=== PATIENT | male | born 1960 | race Hispanic/Latino ===

== ENCOUNTER 2020-02-20 22:18 | Inpatient (IN) | payer OTHER ==
[~2020-02-20] VITALS: Ht 182.9 cm; Wt 103.0 kg
[2020-02-20 23:33] LABS: BASOPHILS % (AUTO) 0.3 % (0.0-5.0); EOSINOPHILS % (AUTO) 4.2 % (0.0-8.0); HEMATOCRIT 24.3 % (42-54); LYMPHOCYTES % (AUTO) 11.4 % (21.0-51.0); MEAN CORPUSCULAR HGB CONC 32.5 g/dL (32.0-36.0); MEAN CORPUSCULAR VOLUME 79.9 fL (79-99); MONOCYTES % (AUTO) 8.5 % (3.0-13.0); NEUTROPHILS % (AUTO) 75.1 % (40.0-77.0); PLATELET COUNT (AUTO) 536 K/uL (130-400); RED BLOOD CELL COUNT(AUTO) 3.04 MIL/uL (4.50-6.20); RED CELL DISTRIBUTION WIDTH 15.4 % (11.0-15.5); WHITE BLOOD COUNT (AUTO) 11.6 K/uL (4.8-10.8)
[2020-02-20 23:48] LABS: INR 1.09 (0.85-1.15); PARTIAL THROMBOPLASTIN TIME 38.3 SEC (26.3-35.5); PROTHROMBIN TIME 11.7 SEC (9.6-11.6)
[2020-02-21 00:05] LABS: ALBUMIN 1.7 g/dL (3.5-5.0); B-TYPE NATRIURETIC PEPTIDE 1000 pg/mL (0-100); BILIRUBIN,TOTAL 0.5 mg/dL (0.2-1.0); POTASSIUM 5.4 mmol/L (3.5-5.1); TOTAL PROTEIN, SERUM 7.6 g/dL (6.0-8.3)
[2020-02-21 00:26] LABS: CREATININE 13.1 mg/dL (0.5-1.5)
[2020-02-21] MEDS ORDERED: ONDANSETRON HCL 4 MG/2 ML VIAL IV PRN (01:30)
[2020-02-21] MEDS ORDERED: GLUCAGON 1MG KIT 1 MG ML IM PRN (01:30)
[2020-02-21] MEDS ORDERED: AZITHROMYCIN 500MG+NS 250ML 250 ML IV SCH (01:30)
[2020-02-21] MEDS ORDERED: ALBUTEROL INHALER 90MCG/INH IH PRN (01:30)
[2020-02-21] MEDS ORDERED: GUAIFENESIN-DM 200/20 MG 10 ML PO PRN (01:30)
[2020-02-21] MEDS ORDERED: MORPHINE SULFATE 2 MG/ML 1ML SYG IVP PRN (01:30)
[2020-02-21] MEDS ORDERED: FUROSEMIDE 10 MG/ML 2ML VIAL IV SCH (01:45)
[2020-02-21] MEDS ORDERED: CEFTRIAXONE SODIUM 1 GM ONE ×2 (01:58→15:35)
[2020-02-21] MEDS ORDERED: FUROSEMIDE 10 MG/ML 2ML VIAL ONE (01:58)
[2020-02-21] MEDS ORDERED: AZITHROMYCIN 500MG+NS 250ML 250 ML IV ONE (01:58)
[2020-02-21] MEDS ORDERED: FAMOTIDINE/PF 20 MG/2 ML VIAL IV ONE ×2 (08:35→22:32)
[2020-02-21] MEDS ORDERED: ASPIRIN 81MG TAB.CHEW ONE (08:35)
[2020-02-21] MEDS ORDERED: FAMOTIDINE/PF 20 MG/2 ML VIAL IV SCH (09:00)
[2020-02-21] MEDS ORDERED: SPIRONOLACTONE 25 MG TAB PO SCH (11:15)
[2020-02-21] MEDS ORDERED: FUROSEMIDE 10 MG/ML 4ML VIAL IV SCH ×2 (11:15→17:00)
[2020-02-21] MEDS ORDERED: FUROSEMIDE 10 MG/ML 4ML VIAL ONE ×2 (11:33→19:45)
[2020-02-21 12:12] LABS: APPEARANCE,URINE Turbid (CLEAR); BILIRUBIN,URINE Negative (NEGATIVE); COLOR,URINE Yellow (YELLOW); GLUCOSE, URINE (UA) TRACE mg/dL (NEGATIVE); KETONES,URINE Negative (NEGATIVE); LEUKOCYTE ESTERASE ,URINE Trace (NEGATIVE); NITRATE,URINE Negative (NEGATIVE); OCCULT BLOOD,URINE Small (NEGATIVE); PH,URINE 5.5 (5.0-8.0); PROTEIN,URINE 300 mg/dL (NEGATIVE); UROBILINOGEN,URINE 0.2 mg/dL (0.2-1.0)
[2020-02-21 12:17] LABS: AMPHET/METH SCREEN,URINE NEGATIVE (NEGATIVE); BARBITURATE SCREEN, URINE NEGATIVE (NEGATIVE); BENZODIAZEPINES SCREEN,URINE NEGATIVE (NEGATIVE); CANNABINOID SCREEN,URINE NEGATIVE (NEGATIVE); COCAINE SCREEN,URINE NEGATIVE (NEGATIVE); OPIATE SCREEN,URINE NEGATIVE (NEGATIVE); PHENCYCLIDINE SCREEN,URINE NEGATIVE (NEGATIVE)
[2020-02-21 12:25] LABS: AMORPHOUS SEDIMENT,UR Moderate /LPF (None Seen); BACTERIA,URINE Few /HPF (None Seen); RBC,URINE 0-1 /HPF (0-1); SQUAMOUS EPITHELIAL CELL,UR Rare /HPF (0-2)
--- NOTE | 2020-02-21 15:33 | NUR ---
CALL TO SPOUSE FOR [place] PT LIVES WITH SPOUSE [place], NO OTHER FAMILY IN [facility]; SPOUSE STATES PATIENT HAS WALKER AND CANE, SHOWER CHAIR, NO STEPS AT HOME , HAS NEEDED ASSIST TO BATHROOM AND FOR ADLS FOR SEVERAL MONTHS, BUT THIS WEEK HAS NOT BEEN ABLE TO STAND UP, OR GET OUT OF BED, SO WAS BROUGHT TO HOSPITAL. SPOUSE HAS GONE TO [facility] TO SEE WHAT HELP HE CAN HAVE ON DISCHARGE AND HAS BEEN REGISTERED BY HIS FOR THEIR SERVICES. PATIENT WILL LIKELY NEED EMS TRANSPORT HOME. PT EVAL ON THIS ADMIT APPROPRIATE WHEN STABLE . ON REVIEW OF RECORD, PT IS REVEALED VERY ILL. CM TO FOLLOW WITH RECOMMENDATION Addendum: 02/21/20 at 1537 by PANFILO HATFIELD RN CM Amended: Links added.
--- NOTE | 2020-02-21 17:49 | NUR ---
DIFFICULT TO COLLECT ADEQUATE DATABASE, PT. UNABLE TO GIVE MUCH INFO. AND VERY DIFFICULT TO UNDERSTAND WHAT HE WAS SAYING.NO MEDICATIONS WITH HIM.AND HE HAS NO IDEA WHAT HE TAKES.
[2020-02-21 18:18] LABS: THYROID STIMULATING HORMONE 8.61 uIU/mL (0.36-3.74); URIC ACID 10.2 mg/dL (2.6-7.2)
[2020-02-21] MEDS: ALBUTEROL SULFATE 0.083% 2.5 MG/3 ML INH IH PRN (18:45)
[2020-02-22] MEDS ORDERED: FUROSEMIDE 10 MG/ML 4ML VIAL ONE ×3 (04:34→21:03)
[2020-02-22] MEDS ORDERED: ALBUTEROL SULFATE 0.083% 2.5 MG/3 ML INH IH ONE (07:34)
[2020-02-22] MEDS: ALBUTEROL SULFATE 0.083% 2.5 MG/3 ML INH IH PRN ×2 (07:42→18:37)
[2020-02-22 07:58] LABS: BASOPHILS % (AUTO) 0.4 % (0.0-5.0); EOSINOPHILS % (AUTO) 5.1 % (0.0-8.0); HEMATOCRIT 24.9 % (42-54); LYMPHOCYTES % (AUTO) 9.8 % (21.0-51.0); MEAN CORPUSCULAR HEMOGLOBIN 25.9 pg (27.0-33.0); MEAN CORPUSCULAR HGB CONC 32.1 g/dL (32.0-36.0); MEAN CORPUSCULAR VOLUME 80.6 fL (79-99); MONOCYTES % (AUTO) 8.5 % (3.0-13.0); NEUTROPHILS % (AUTO) 75.8 % (40.0-77.0); PLATELET COUNT (AUTO) 524 K/uL (130-400); RED BLOOD CELL COUNT(AUTO) 3.09 MIL/uL (4.50-6.20); RED CELL DISTRIBUTION WIDTH 15.5 % (11.0-15.5); WHITE BLOOD COUNT (AUTO) 9.6 K/uL (4.8-10.8)
[2020-02-22 08:11] LABS: ALBUMIN 1.5 g/dL (3.5-5.0); BILIRUBIN,DIRECT 0.1 mg/dL (0.0-0.3); BILIRUBIN,TOTAL 0.4 mg/dL (0.2-1.0); MAGNESIUM 2.5 mg/dL (1.80-2.40); POTASSIUM 5.4 mmol/L (3.5-5.1); TOTAL PROTEIN, SERUM 7.1 g/dL (6.0-8.3); URIC ACID 10.5 mg/dL (2.6-7.2)
[2020-02-22 08:38] LABS: CRP QUANTITATIVE 176.5 mg/L (0.00-9.0)
[2020-02-22] MEDS ORDERED: ASPIRIN 325 MG TABLET ONE (09:31)
[2020-02-22] MEDS ORDERED: AZITHROMYCIN 500MG+NS 250ML 250 ML IV ONE (09:31)
[2020-02-22] MEDS ORDERED: FAMOTIDINE/PF 20 MG/2 ML VIAL IV ONE (09:32)
[2020-02-22] MEDS ORDERED: CEFTRIAXONE SODIUM 1 GM ONE (11:20)
[2020-02-22] MEDS ORDERED: BUMETANIDE 0.25 MG/ML 10 ML VIAL IV SCH (23:45)
[2020-02-23 00:23] VITALS: BP 165/78
[2020-02-23] MEDS ORDERED: SODIUM CHLORIDE 0.9% IV SCH (01:00)
[2020-02-23] MEDS ORDERED: BUMETANIDE IV SCH (01:00)
[2020-02-23] MEDS: INSULIN HUMULIN R 100 UNIT/ML 3ML SQ SCH ×5 (01:12→20:32)
[2020-02-23] MEDS: ASPIRIN 81MG TAB.CHEW PO SCH ×2 (01:12→09:19)
[2020-02-23] MEDS: FAMOTIDINE/PF 20 MG/2 ML VIAL IV SCH ×2 (01:12→09:18)
[2020-02-23] MEDS: CEFTRIAXONE SODIUM 1 GM IVP SCH ×3 (01:12→13:06)
--- NOTE | 2020-02-23 01:15 | NUR ---
Nursing Note-Admission Pt arrived to floor at 0023. Pt situated and stable in room. No wounds on back/butt. Lower extremities weakness. Flor catheter draining and attached to leg. Spoke with Silvio RUIZ at 0100 informed her that pt has puss coming from penis tip. Orders given for culture of penis and to do urinalysis/culture. Cleared medication list. Check ER med list for meds that were given in ER.
[2020-02-23] MEDS ORDERED: ACETAMINOPHEN 325 MG TAB PO PRN (01:30)
[2020-02-23] MEDS ORDERED: PHARMACY COMMUNICATION MISC SCH (02:00)
[2020-02-23 04:30] VITALS: BP 156/79
[2020-02-23 05:51] LABS: APPEARANCE,URINE Clear (CLEAR); BILIRUBIN,URINE Negative (NEGATIVE); COLOR,URINE Yellow (YELLOW); GLUCOSE, URINE (UA) Negative (NEGATIVE); KETONES,URINE Negative (NEGATIVE); LEUKOCYTE ESTERASE ,URINE Trace (NEGATIVE); NITRATE,URINE Negative (NEGATIVE); OCCULT BLOOD,URINE Small (NEGATIVE); PROTEIN,URINE 300 mg/dL (NEGATIVE); UROBILINOGEN,URINE 0.2 mg/dL (0.2-1.0)
[2020-02-23 05:55] LABS: BASOPHILS % (AUTO) 0.3 % (0.0-5.0); EOSINOPHILS % (AUTO) 5.9 % (0.0-8.0); LYMPHOCYTES % (AUTO) 9.7 % (21.0-51.0); MEAN CORPUSCULAR HEMOGLOBIN 25.3 pg (27.0-33.0); MEAN CORPUSCULAR HGB CONC 31.7 g/dL (32.0-36.0); MONOCYTES % (AUTO) 9.1 % (3.0-13.0); NEUTROPHILS % (AUTO) 74.6 % (40.0-77.0); NUCLEATED RED BLOOD CELLS 0.2 % (0.0-0.19); PLATELET COUNT (AUTO) 501 K/uL (130-400); RED CELL DISTRIBUTION WIDTH 15.7 % (11.0-15.5); WHITE BLOOD COUNT (AUTO) 9.5 K/uL (4.8-10.8)
[2020-02-23 06:07] LABS: BACTERIA,URINE Rare /HPF (None Seen); RBC,URINE 0-1 /HPF (0-1); SQUAMOUS EPITHELIAL CELL,UR Rare /HPF (0-2)
[2020-02-23 06:18] LABS: ALBUMIN 1.4 g/dL (3.5-5.0); BILIRUBIN,TOTAL 0.5 mg/dL (0.2-1.0); POTASSIUM 5.3 mmol/L (3.5-5.1)
[2020-02-23 06:25] LABS: CREATININE 12.8 mg/dL (0.5-1.5)
[2020-02-23] MEDS: ALBUTEROL SULFATE 0.083% 2.5 MG/3 ML INH IH PRN ×2 (06:46→18:26)
[2020-02-23 08:14] VITALS: BP 138/73
[2020-02-23] MEDS: AZITHROMYCIN 500MG+NS 250ML 250 ML IV SCH (09:18)
[2020-02-23] MEDS: BUMETANIDE 0.25MG/ML 80ML IV SCH (10:59)
[2020-02-23] MEDS: LACTULOSE 20 GM/30 ML UDCUP PO SCH ×2 (11:30→21:13)
[2020-02-23] MEDS ORDERED: LACTULOSE 20 GM/30 ML UDCUP ONE (11:40)
[2020-02-23 11:50] VITALS: BP 122/71
[2020-02-23 16:00] VITALS: BP 134/82
[2020-02-23 20:00] VITALS: BP_SYST 139; BP_SYST 158; BP_DIAS 61; BP_DIAS 76
[2020-02-24] VITALS (7 sets, daily range): BP systolic 126–160; BP diastolic 71–83
[2020-02-24] MEDS: CEFTRIAXONE SODIUM 1 GM IVP SCH ×2 (01:16→14:08)
[2020-02-24 03:31] LABS: HEMATOCRIT 26.9 % (42-54); MEAN CORPUSCULAR HEMOGLOBIN 25.6 pg (27.0-33.0); MEAN CORPUSCULAR HGB CONC 32.3 g/dL (32.0-36.0); MEAN CORPUSCULAR VOLUME 79.1 fL (79-99); RED BLOOD CELL COUNT(AUTO) 3.4 MIL/uL (4.50-6.20); RED CELL DISTRIBUTION WIDTH 15.5 % (11.0-15.5); WHITE BLOOD COUNT (AUTO) 10.3 K/uL (4.8-10.8)
[2020-02-24 03:50] LABS: POTASSIUM 5.5 mmol/L (3.5-5.1)
[2020-02-24 03:51] LABS: CREATININE 12.5 mg/dL (0.5-1.5)
[2020-02-24 04:07] LABS: % IRON SATURATION 19.3 % (30-44)
--- NOTE | 2020-02-24 06:00 | NUR ---
Informed [employer] Shanon Ochoa regarging patient getting more confused and complaining of shortness of breath O2 saturation at 98% on 3L per NC. She said to continue to monitor and just to inform on coming Nurse and to inform DR. Love when he rounds. Will monitor patient closely
[2020-02-24] MEDS: INSULIN HUMULIN R 100 UNIT/ML 3ML SQ SCH ×4 (06:05→21:00)
[2020-02-24] MEDS: ALBUTEROL SULFATE 0.083% 2.5 MG/3 ML INH IH PRN ×2 (06:35→18:34)
[2020-02-24] MEDS: FAMOTIDINE/PF 20 MG/2 ML VIAL IV SCH (09:39)
[2020-02-24] MEDS: LACTULOSE 20 GM/30 ML UDCUP PO SCH ×2 (09:39→21:16)
[2020-02-24] MEDS: AZITHROMYCIN 500MG+NS 250ML 250 ML IV SCH (09:39)
[2020-02-24] MEDS: ASPIRIN 81MG TAB.CHEW PO SCH (09:40)
[2020-02-24] MEDS: BUMETANIDE 0.25MG/ML 80ML IV SCH (09:41)
--- NOTE | 2020-02-24 15:08 | NUR ---
RD NOTIFICATION Pt admitted with ESRD, PNA, Cirrhosis. Not currently on dialysis. Pt was fatigue and with confused speech upon visit. Full Liquid, Renal Diet order in place. No report of GI distress, Fair PO intake. RLE 2+/LLE 3+ edema. 1) Recommend advanced diet to Renal, 75gm CC, Heart healthy diet as medically feasible 2) Recommend 1500mL Fluid restriction 3) Nutrition education placed in Pt chart Addendum: 02/24/20 at [address] RD Amended: Links added.
--- NOTE | 2020-02-24 15:12 | NUR ---
NUTRITION EDUCATION RD attempt to provide Renal Nutrition Education. Upon visit, Pt with confused speech and fatigue. RD placed education materials in Pt chart. RD to follow up. Addendum: 02/24/20 at [address] RD Amended: Links added.
[2020-02-24] MEDS ORDERED: EPOETIN ALFA 10,000 UNIT/ML VIAL SQ SCH (21:00)
[2020-02-25] MEDS: CEFTRIAXONE SODIUM 1 GM IVP SCH ×2 (01:40→14:00)
[2020-02-25 03:56] VITALS: BP 143/75
[2020-02-25 04:23] LABS: BASOPHILS % (AUTO) 0.4 % (0.0-5.0); EOSINOPHILS % (AUTO) 5.3 % (0.0-8.0); LYMPHOCYTES % (AUTO) 9.2 % (21.0-51.0); MEAN CORPUSCULAR HEMOGLOBIN 25.1 pg (27.0-33.0); MEAN CORPUSCULAR HGB CONC 31.9 g/dL (32.0-36.0); MEAN CORPUSCULAR VOLUME 78.7 fL (79-99); MONOCYTES % (AUTO) 8.1 % (3.0-13.0); NEUTROPHILS % (AUTO) 76.6 % (40.0-77.0); PLATELET COUNT (AUTO) 515 K/uL (130-400); RED BLOOD CELL COUNT(AUTO) 3.43 MIL/uL (4.50-6.20); RED CELL DISTRIBUTION WIDTH 15.8 % (11.0-15.5); WHITE BLOOD COUNT (AUTO) 9.9 K/uL (4.8-10.8)
[2020-02-25 05:34] LABS: POTASSIUM 5.8 mmol/L (3.5-5.1)
[2020-02-25] MEDS: BUMETANIDE 0.25MG/ML 80ML IV SCH (05:46)
[2020-02-25 05:51] LABS: CREATININE 12.4 mg/dL (0.5-1.5)
[2020-02-25] MEDS: ALBUTEROL SULFATE 0.083% 2.5 MG/3 ML INH IH PRN ×2 (06:18→18:04)
[2020-02-25] MEDS: DEXTROSE 50%-WATER 50 ML DISP.SYRIN IV PRN (06:20)
[2020-02-25] MEDS: INSULIN HUMULIN R 100 UNIT/ML 3ML SQ SCH ×4 (06:21→21:00)
[2020-02-25 08:00] VITALS: BP 127/67
[2020-02-25] MEDS ORDERED: SODIUM POLYSTYRENE SULFONATE 15 GM/60 ML ML PO SCH (08:30)
[2020-02-25] MEDS: ASPIRIN 81MG TAB.CHEW PO SCH (10:44)
[2020-02-25] MEDS: LACTULOSE 20 GM/30 ML UDCUP PO SCH ×2 (10:44→21:57)
[2020-02-25] MEDS: AZITHROMYCIN 500MG+NS 250ML 250 ML IV SCH (10:45)
[2020-02-25] MEDS: FAMOTIDINE/PF 20 MG/2 ML VIAL IV SCH (10:45)
[2020-02-25 11:21] VITALS: BP 121/59
[2020-02-25 16:00] VITALS: BP 127/65
[2020-02-25 19:00] VITALS: BP 112/73
[2020-02-25 23:00] VITALS: BP 124/70
[2020-02-26] MEDS: CEFTRIAXONE SODIUM 1 GM IVP SCH ×2 (02:06→13:43)
[2020-02-26] MEDS: BUMETANIDE 0.25MG/ML 80ML IV SCH ×2 (02:50→10:37)
[2020-02-26 03:00] VITALS: BP 120/72
[2020-02-26] MEDS: DEXTROSE 50%-WATER 50 ML DISP.SYRIN IV PRN ×4 (03:02→17:45)
[2020-02-26 04:39] LABS: BASOPHILS % (AUTO) 0.3 % (0.0-5.0); HEMATOCRIT 25.5 % (42-54); LYMPHOCYTES % (AUTO) 9.6 % (21.0-51.0); MEAN CORPUSCULAR HEMOGLOBIN 26.1 pg (27.0-33.0); MEAN CORPUSCULAR HGB CONC 32.9 g/dL (32.0-36.0); MEAN CORPUSCULAR VOLUME 79.2 fL (79-99); MONOCYTES % (AUTO) 7.4 % (3.0-13.0); NEUTROPHILS % (AUTO) 79.3 % (40.0-77.0); PLATELET COUNT (AUTO) 499 K/uL (130-400); RED BLOOD CELL COUNT(AUTO) 3.22 MIL/uL (4.50-6.20); RED CELL DISTRIBUTION WIDTH 15.7 % (11.0-15.5); WHITE BLOOD COUNT (AUTO) 10.1 K/uL (4.8-10.8)
[2020-02-26 05:09] LABS: CREATININE 12.6 mg/dL (0.5-1.5)
[2020-02-26] MEDS: ALBUTEROL SULFATE 0.083% 2.5 MG/3 ML INH IH PRN ×2 (06:34→18:21)
[2020-02-26] MEDS: INSULIN HUMULIN R 100 UNIT/ML 3ML SQ SCH ×4 (06:45→21:00)
[2020-02-26 07:00] VITALS: BP 125/63
[2020-02-26] MEDS: LACTULOSE 20 GM/30 ML UDCUP PO SCH ×2 (09:00→21:00)
[2020-02-26] MEDS: ASPIRIN 81MG TAB.CHEW PO SCH (09:00)
[2020-02-26] MEDS: AZITHROMYCIN 500MG+NS 250ML 250 ML IV SCH (10:36)
[2020-02-26] MEDS: FAMOTIDINE/PF 20 MG/2 ML VIAL IV SCH (10:37)
[2020-02-26 11:00] VITALS: BP 121/59
[2020-02-26 15:50] VITALS: BP 125/68
[2020-02-26 19:58] VITALS: BP 123/64
[2020-02-26 23:40] VITALS: BP 111/63
[2020-02-27] MEDS: CEFTRIAXONE SODIUM 1 GM IVP SCH ×2 (01:52→12:26)
[2020-02-27] MEDS: DEXTROSE 50%-WATER 50 ML DISP.SYRIN IV PRN ×3 (01:54→18:49)
[2020-02-27 03:38] LABS: HEMATOCRIT 23.4 % (42-54); MEAN CORPUSCULAR HEMOGLOBIN 26.2 pg (27.0-33.0); MEAN CORPUSCULAR HGB CONC 33.3 g/dL (32.0-36.0); MEAN CORPUSCULAR VOLUME 78.5 fL (79-99); NUCLEATED RED BLOOD CELLS 0.2 % (0.0-0.19); RED BLOOD CELL COUNT(AUTO) 2.98 MIL/uL (4.50-6.20); RED CELL DISTRIBUTION WIDTH 15.9 % (11.0-15.5); WHITE BLOOD COUNT (AUTO) 10.4 K/uL (4.8-10.8)
[2020-02-27 03:58] LABS: POTASSIUM 4.4 mmol/L (3.5-5.1)
[2020-02-27 04:00] VITALS: BP 115/51
[2020-02-27 04:35] LABS: CREATININE 12.7 mg/dL (0.5-1.5)
[2020-02-27] MEDS: BUMETANIDE 0.25MG/ML 80ML IV SCH (05:13)
[2020-02-27] MEDS: ALBUTEROL SULFATE 0.083% 2.5 MG/3 ML INH IH PRN ×2 (06:24→18:46)
[2020-02-27] MEDS: INSULIN HUMULIN R 100 UNIT/ML 3ML SQ SCH ×4 (07:30→21:00)
[2020-02-27 07:48] VITALS: BP 117/64
[2020-02-27] MEDS: LACTULOSE 20 GM/30 ML UDCUP PO SCH ×2 (09:00→21:00)
[2020-02-27] MEDS: ASPIRIN 81MG TAB.CHEW PO SCH (09:00)
[2020-02-27] MEDS: FAMOTIDINE/PF 20 MG/2 ML VIAL IV SCH (09:00)
--- NOTE | 2020-02-27 10:36 | NUR ---
[facility] SW met with at bedside. very emotional, SW provided emotional support. states pt is non verbal, DNR and on comfort measures. SW educated on [facility] hospice referral process. understanding and agreeable. SW made referrals to [facility] and [facility]. Both agencies are closed due to holiday and will review in am for possible acceptance
[2020-02-27] MEDS: AZITHROMYCIN 500MG+NS 250ML 250 ML IV SCH (10:37)
[2020-02-27 11:06] VITALS: BP 128/62
[2020-02-27 16:36] VITALS: BP 126/59
[2020-02-27 20:00] VITALS: BP 122/65
[2020-02-27 23:30] VITALS: BP 131/56
[2020-02-28] MEDS: CEFTRIAXONE SODIUM 1 GM IVP SCH (01:11)
[2020-02-28 04:00] VITALS: BP 117/69
[2020-02-28] MEDS: INSULIN HUMULIN R 100 UNIT/ML 3ML SQ SCH (05:31)
[2020-02-28] MEDS: ALBUTEROL SULFATE 0.083% 2.5 MG/3 ML INH IH PRN (06:19)
[2020-02-28 07:00] VITALS: BP_SYST 126; BP_SYST 135; BP_DIAS 56; BP_DIAS 67
[2020-02-28] MEDS ORDERED: HALOPERIDOL 1 MG TABLET PO PRN (07:30)
[2020-02-28] MEDS ORDERED: ONDANSETRON HCL 4 MG/2 ML VIAL IVP PRN (07:30)
[2020-02-28] MEDS ORDERED: ARTIFICAL TEARS SOL 15 ML OU PRN (07:30)
[2020-02-28] MEDS ORDERED: SCOPOLAMINE HYDROBROMIDE 1 EACH ADH..PATCH TD SCH (07:30)
[2020-02-28] MEDS ORDERED: LORAZEPAM 2 MG/ML 1 ML VIAL IVP PRN (07:30)
[2020-02-28] MEDS ORDERED: DEXAMETHASONE 1 MG/ML PO PRN (07:30)
[2020-02-28] MEDS ORDERED: ACETAMINOPHEN 650 MG SUPPOSITORY RC PRN (07:30)
[2020-02-28] MEDS ORDERED: ACETAMINOPHEN 325 MG TAB PO PRN (07:30)
[2020-02-28] MEDS ORDERED: MORPHINE SULFATE 2 MG/ML 1ML SYG IVP PRN (07:30)
--- NOTE | 2020-02-28 08:45 | NUR ---
DCP: HOME WITH [facility] Sw recd call from [facility] [phone] with [facility]. They will accept pt.[facility] to contact for consents, OOHDNR and DME. Waiting on arrangements to be made
[2020-02-28] MEDS: LACTULOSE 20 GM/30 ML UDCUP PO SCH (09:00)
--- NOTE | 2020-02-28 09:24 | NUR ---
OOHDNR SW met with and completed OOHDNR. informed we found an accepting hospice and dc process. DC pending consents, DME delivery, MD to sign OOHDNR. OOHDNR placed on chart for MD. CM aware and making transport arrangements.
[2020-02-28] MEDS: FAMOTIDINE/PF 20 MG/2 ML VIAL IV SCH (10:01)
--- NOTE | 2020-02-28 13:14 | NUR ---
CM NOTE/[facility] PER SS, PATIENT APPROVED FOR HOSPICE WITH [facility]. THIS REPORTED TO PRIMARY NURSE, ANDRY THAO. OFFICE # [id number] AND FAX# [phone]. PER [facility] WITH HOSPICE, EQUIPMENT AND MEDS PENDING TO BE DELIVERED. EMS SET UP AND FLAGGED IN CHART, NURSE AWARE.
--- NOTE | 2020-02-28 13:45 | NUR ---
DME at the home, pt ready for dc per [facility]. CM informed.
== END 2020-02-28 17:00 | disposition hospice, home (50) | DRG 193 ==
LOC: EDH 22:18 → EDHIP 22:19 → 4BH 02-23 00:03
PROVIDERS: ADMIT Internal Medicine; ATTEND Internal Medicine
DX: J18.9 Pneumonia, unspecified organism (principal); J96.01 Acute respiratory failure with hypoxia; E43 Unspecified severe protein-calorie malnutrition; N18.6 End stage renal disease; I13.11 Hypertensive heart and chronic kidney disease without heart failure, with stage 5 chronic kidney disease, or end stage renal disease; G93.49 Other encephalopathy; N25.81 Secondary hyperparathyroidism of renal origin; E87.2 Acidosis; J91.8 Pleural effusion in other conditions classified elsewhere; J81.1 Chronic pulmonary edema; Z66 Do not resuscitate; Z51.5 Encounter for palliative care; R29.6 Repeated falls; E79.0 Hyperuricemia without signs of inflammatory arthritis and tophaceous disease; E11.22 Type 2 diabetes mellitus with diabetic chronic kidney disease; E11.21 Type 2 diabetes mellitus with diabetic nephropathy; E11.51 Type 2 diabetes mellitus with diabetic peripheral angiopathy without gangrene; M79.604 Pain in right leg; M79.605 Pain in left leg; Z20.828 Contact with and (suspected) exposure to other viral communicable diseases; K74.60 Unspecified cirrhosis of liver; E87.70 Fluid overload, unspecified; E87.5 Hyperkalemia; D63.1 Anemia in chronic kidney disease; Z68.30 Body mass index [BMI] 30.0-30.9, adult; Z99.2 Dependence on renal dialysis; Z91.81 History of falling; Z79.899 Other long term (current) drug therapy
CPT/HCPCS: 36415; 71045; 76705; 76770; 80048; 80053; 80076; 80305; 81001; 82140; 82150; 82270; 82550; 82570; 82728; 82948; 83540; 83550; 83605; 83615; 83690; 83735; 83880; 84100; 84145; 84156; 84300; 84443; 84484; 84550; 85025; 85027; 85378; 85610; 85730; 86038; 86140; 86160; 86162; 86215; 86235; 86334; 87070; 87077; 87088; 87186; 87449; 87486; 87581; 87633; 87798; 93005; 93306; 93356; 94640; 94664; G0378; G0480; J0456; J0696; J0885; J1940; J3490; J7070